=== PATIENT | male | born 1990 | race Two or more races ===

== ENCOUNTER 2022-05-24 15:24 | Emergency (ER) | payer SELFPAY ==
[~2022-05-24] VITALS: Ht 185.4 cm; Wt 95.0 kg
[2022-05-24] MEDS ORDERED: ACET-1158 PO (17:53)
[2022-05-24] MEDS ORDERED: AMOX-277 PO (17:53)
[2022-05-24] MEDS ORDERED: PRED20TA2 PO (17:53)
[2022-05-24] MEDS ORDERED: cefTRIAXone SOD 1,000 MG VL IM ONE (18:00)
[2022-05-24] MEDS ORDERED: methylPREDNISolone SOD SUCC 125 MG/2 ML VL IM ONE (18:00)
[2022-05-24 18:52] VITALS: BP 134/90
== END 2022-05-24 19:03 | disposition home or self-care (01) ==
LOC: ER 15:24
DX: U07.1 COVID-19 (principal); J02.9 Acute pharyngitis, unspecified
CPT/HCPCS: 36415; 87426; 96372; 99284; J0696; J2930